=== PATIENT | male | born 1970 | race African-American/Black ===

== ENCOUNTER 2021-01-09 22:27 | Emergency (ER) | payer SELFPAY ==
--- NOTE | 2021-01-09 22:50 | NUR ---
Patient was called to be traiged but was not present.
--- NOTE | 2021-01-09 23:00 | NUR ---
Patient was called to be traiged but was not present.
--- NOTE | 2021-01-09 23:20 | NUR ---
Patient was called to be traiged but was not present. Patient was not traiged or seen by ERMD.
== END 2021-01-09 23:20 | disposition left against medical advice (07) ==
LOC: ER 22:37
DX: Z53.21 Procedure and treatment not carried out due to patient leaving prior to being seen by health care provider (principal)

== ENCOUNTER 2021-02-14 01:51 | Emergency (ER) | payer OTHER ==
[~2021-02-14] VITALS: Ht 167.6 cm; Wt 59.0 kg
--- NOTE | 2021-02-14 02:36 | NUR ---
Patient given written and verbal discharge instructions. Patient verbalizes understanding of instructions. Patient is ambulatory with steady gait. Refuses offer of custodial placement. Patient given list of available shelters in surrounding area.
[2021-02-14] MEDS ORDERED: MUPIROCIN 2% OINT 22 GM TUBE ONE (02:40)
[2021-02-14] MEDS ORDERED: MUPIROCIN 2% OINT 22 GM TUBE TP ONE (02:45)
== END 2021-02-14 02:38 | disposition home or self-care (01) ==
LOC: ER 01:55
DX: L72.8 Other follicular cysts of the skin and subcutaneous tissue (principal); F17.210 Nicotine dependence, cigarettes, uncomplicated; F20.9 Schizophrenia, unspecified
CPT/HCPCS: A4663

== ENCOUNTER 2021-03-03 22:57 | Emergency (ER) | payer OTHER ==
[~2021-03-03] VITALS: Ht 170.2 cm; Wt 59.0 kg
--- NOTE | 2021-03-03 23:15 | NUR ---
PATIENT C/O MASS UNDERNEATH HIS CHIN THAT HAS BEEN THERE OVER YEAR.
--- NOTE | 2021-03-03 23:16 | NUR ---
Dr. Sandoval on bedside for MSE.
[2021-03-03] MEDS ORDERED: TRIA60LO14 TP (23:22)
--- NOTE | 2021-03-03 23:29 | NUR ---
Patient discharged to home in stable condition. Written and verbal after care instructions given. Patient verbalizes understanding of instructions. Stressed follow up or return to ER for worsening s/s. Patient ambulated fr the ER with steady gait. All belongings with patient.
[2021-03-03 23:30] VITALS: BP 130/66
== END 2021-03-03 23:30 | disposition home or self-care (01) ==
LOC: ER 22:58
DX: L91.0 Hypertrophic scar (principal); Z59.02 Unsheltered homelessness; F17.210 Nicotine dependence, cigarettes, uncomplicated; F20.9 Schizophrenia, unspecified
CPT/HCPCS: A4663

== ENCOUNTER 2023-09-25 21:10 | Emergency (ER) | payer OTHER ==
[~2023-09-25] VITALS: Ht 167.6 cm; Wt 65.8 kg
[~2023-09-25 21:10] MED LIST: TRIA60LO14 TP
[2023-09-26 00:09] LABS: BASOPHILS % (AUTO) 0.4 % (0.0-2.0); DIFFERENTIAL COMMENT 0; EOSINOPHILS % (AUTO) 0.8 % (0.0-7.0); HEMATOCRIT 41.5 % (36.7-47.1); HEMOGLOBIN 13.4 g/dL (12.5-16.3); LYMPHOCYTES # (AUTO) 2.3 K/uL (0.8-4.8); LYMPHOCYTES % (AUTO) 42.6 % (20.5-51.5); MEAN CORPUSCULAR HEMOGLOBIN 29.3 uug (23.8-33.4); MEAN CORPUSCULAR HGB CONC 32 g/dL (32.5-36.3); MEAN CORPUSCULAR VOLUME 90.5 fL (73.0-96.2); MONOCYTES # (AUTO) 0.5 K/uL (0.1-1.30); MONOCYTES % (AUTO) 9.6 % (0.0-11.0); NEUTROPHILS # (AUTO) 2.5 K/uL (1.8-8.9); NEUTROPHILS % (AUTO) 46.6 % (38.5-71.5); PLATELET COUNT (AUTO) 226 K/uL (152-348); RED BLOOD CELL COUNT(AUTO) 4.58 MIL/uL (4.06-5.63); RED CELL DISTRIBUTION WIDTH 15.8 % (12.1-16.2); WHITE BLOOD COUNT (AUTO) 5.4 K/uL (3.6-10.2)
[2023-09-26 00:16] LABS: *BLOOD, URINE NEGATIVE (NEGATIVE); *COLOR,URINE YELLOW (YELLOW); *KETONES,URINE 1+ (NEGATIVE); *PROTEIN,URINE 1+ (NEGATIVE); *UROBILINOGEN,URINE 0.2 E.U./dl (NORMAL); LEUKOCYTE ESTERASE ,URINE NEGATIVE (NEGATIVE); NITRITE, URINE NEGATIVE (NEGATIVE); PH,URINE 5.5 (5.0-8.0); UGLUCOSE NEGATIVE (NEGATIVE)
[2023-09-26 00:30] LABS: CALCIUM 9.1 mg/dL (8.5-10.1); POTASSIUM 3.3 mmol/L (3.5-5.1)
[2023-09-26 00:31] LABS: *BILIRUBIN,URIN 1+ (NEGATIVE); *CLARITY,URINE SLIGHTLY HAZY (CLEAR)
[2023-09-26 00:35] LABS: *AMPHETAMINE, URINE POSITIVE (NEGATIVE); *BARBITURATE, URINE NEGATIVE (NEGATIVE); *BENZODIAZEPINE, URINE NEGATIVE (NEGATIVE); *CANNABINOID, URINE NEGATIVE (NEGATIVE); *COCCAINE, URINE NEGATIVE (NEGATIVE); *OPIATE, URINE NEGATIVE (NEGATIVE); *PHENCYCLIDINE SCREEN,URINE NEGATIVE (NEGATIVE); FENTANYL, URINE NEGATIVE (NEGATIVE)
[2023-09-26 00:35] LABS: ALBUMIN 3.9 g/dL (3.4-5.0); BILIRUBIN,DIRECT 0.3 mg/dL (0.0-0.2); BILIRUBIN,TOTAL 1.4 mg/dL (0.2-1.0); TOTAL PROTEIN, SERUM 7.8 g/dL (6.4-8.2)
[2023-09-26 00:37] LABS: BACTERIA,URINE MODERATE /HPF (NONE SEEN); RBC,URINE NONE SEEN /HPF (0-3); WBC,URINE NONE SEEN /HPF (0-3)
[2023-09-26 00:41] LABS: SQUAMOUS EPITHELIAL CELL,UR FEW /HPF (NONE SEEN)
[2023-09-26 03:22] VITALS: BP 110/76; TEMP 98; O2SAT 98
== END 2023-09-26 03:23 | disposition home or self-care (01) ==
LOC: ER 21:12
DX: F15.10 Other stimulant abuse, uncomplicated (principal); E11.9 Type 2 diabetes mellitus without complications; F17.200 Nicotine dependence, unspecified, uncomplicated; Z59.00 Homelessness unspecified
CPT/HCPCS: 36415; 71045; 85025; A4606; A4663